=== PATIENT | male | born 1965 | race Caucasian/White ===

== ENCOUNTER 2016-12-27 07:36 | Day surgery (SDC) | payer OTHER, MEDICARE ==
[~2016-12-27] VITALS: Ht 180.3 cm; Wt 128.0 kg
--- NOTE | ~2016-12-27 | CON ---
PATIENT'S NAME: IGOR GOLDSTEIN [facility] AGE: 51 Y [address] ROOM: [id number] [place], [place] [id number] LOCATION: [facility] – [place] ADMIT DATE: 12/27/2016 Consultation DISCHARGE DATE: FAMILY PHYSICIAN: Max Osborne MD ATTENDING PHYSICIAN: Vinny Kee REFERRING PHYSICIAN: ORTEGA FORMAN MD CHIEF COMPLAINT: Obstructive sleep apnea, admitted postoperatively in for observation. HISTORY OF PRESENT ILLNESS: A 51-year-old gentleman with a past medical history of insulin-dependent diabetes mellitus, hypertension, and obstructive sleep apnea, who underwent a UPPP today in order to treat his obstructive sleep apnea surgically. On my encounter, he is coughing a lot secondary to procedure and receiving inhaled local anesthetics to relieve of that. He otherwise denied having any chest pain, any shortness of breath, any headache, any dizziness, any abdominal pain, any constipation, any diarrhea, burning on urination, or any leg swelling. REVIEW OF SYSTEMS: All other systems reviewed were negative except what is mentioned in the HPI. ALLERGIES: THE PATIENT HAS ALLERGY TO PENICILLIN. PAST MEDICAL HISTORY: 1. Insulin-dependent diabetes mellitus. 2. Hypertension. 3. Obstructive sleep apnea. 4. Osteoarthritis. 5. Morbid obesity. FAMILY HISTORY: Family history was significant for diabetes in both Mom and Dad. SOCIAL HISTORY: Never a smoker. No alcohol or drug abuse. PHYSICAL EXAMINATION: VITAL SIGNS: Blood pressure was 159/69, pulse was 72, oxygen saturation was 98%, respirations were 16, and afebrile. GENERAL: No acute distress. Coughing intermittently. HEAD: Atraumatic and normocephalic. EYES: Nonicteric. No pallor. MOUTH: Oropharynx, moist mucous membranes. PATIENT'S NAME: IGOR GOLDSTEIN [facility] AGE: 51 Y [address] ROOM: [id number] [place], [place] [address] LOCATION: [facility] [place] ADMIT DATE: 12/27/2016 Consultation DISCHARGE DATE: FAMILY PHYSICIAN: Max Osborne MD ATTENDING PHYSICIAN: Vinny Kee NECK: Very obese neck. CARDIOVASCULAR: S1 and S2. No murmurs, gallops, or rubs. LUNGS: Clear to auscultation bilaterally. ABDOMEN: Obese, soft, nontender, and nondistended. Bowel sounds are present. EXTREMITIES: No clubbing, cyanosis, or edema. PSYCHIATRIC: Normal affect, mood, and speech. NEUROLOGIC: Cranial nerves II through XII were intact. No motor or sensory deficit. MUSCULOSKELETAL: No muscle tenderness or swelling was noted. LABORATORY DATA: Blood glucose level today on Accu-Chek was 143. ASSESSMENT: 1. Insulin-dependent diabetes mellitus. 2. Hypertension. 3. Obstructive sleep apnea. 4. Osteoarthritis. 5. Morbid obesity. 6. Status post uvulopharyngopalatoplasty, postoperative day zero. PLAN: At this point, we will observe this patient in the hospital. Decrease the dose of insulin from 65 units of Levemir to 50 units, given his fasting status. Sliding-scale insulin moderate scale and Accu-Cheks every hour. Diet orders per ENT. Agree with re-starting all the home medications for hypertension. SCDs for DVT prophylaxis. MD BURTON LAGOS/aye /[id number] d: 12/27/162019 t: 12/28/16 0929, CONSULTATION REPORT
--- NOTE | ~2016-12-27 | OR ---
PATIENT'S NAME: BRYANT GOLDSTEIN [facility] AGE: 51 Y [address] ROOM: [place] [address] [place] [facility] [place] DATE: 12/27/2016 OR/Procedure Report DISCHARGE DATE: FAMILY PHYSICIAN: Max Osborne MD ATTENDING PHYSICIAN: Marcio Gomez SURGEON: Marcio Gomez MD MANAGER COMPLETIONS: DATE OF PROCEDURE: 12/27/2016 PREOPERATIVE DIAGNOSES: 1. Uvular/soft palate hypertrophy with gagging. 2. Known obstructive sleep apnea. POSTOPERATIVE DIAGNOSES: 1. Uvular/soft palate hypertrophy with gagging. 2. Known obstructive sleep apnea. ANESTHESIA: General. PROCEDURE: Uvulopalatopharyngoplasty. HISTORY: Bryant Goldstein is a 51-year-old gentleman with chronic history of obesity and obstructive sleep apnea. The patient has had increasing difficulty with hypertrophy of the uvula and gagging symptoms. The patient notes no other head or neck complaints. Exam confirmed the above. The operative indications, potential complications, and options including increased risk of airway obstruction postop were discussed with the patient, who wished to proceed with surgery. DESCRIPTION OF PROCEDURE: Bryant Goldstein was brought to the operating room, placed in the supine position, and underwent general anesthesia without incident. The Migdalia-Delta mouth gag was used to expose the oropharynx where small tonsils were noted. The uvula was hypertrophied. The base of the uvula was injected with 3 mL of 1% lidocaine with 1:100,000 epinephrine. After approximately 5 minutes, uvulectomy including soft palate was performed. The edges were closed with interrupted 4-0 chromic suture. Bleeding was minimal. The patient tolerated the procedure well, was extubated, and taken to the recovery room in stable condition. MARCIO GOMEZ MD DGO/modl PATIENT'S NAME: BRYANT GOLDSTEIN [facility] AGE: 51 Y [address] ROOM: [place] [address] [place] [facility] [place] DATE: 12/27/2016 OR/Procedure Report DISCHARGE DATE: FAMILY PHYSICIAN: Max Osborne MD ATTENDING PHYSICIAN: Marcio Gomez /[id number] d: 12/27/16 1851 t: 01/03/17 0751, OPERATIVE SUMMARY
[~2016-12-27 07:36] MED LIST: ALLEGRA180 MG PO; AMBIEN10 MG PO; ASPIRIN LO-DOSE81 MG PO; ATIVAN 0.5MG0.5 MG PO; ATIVAN 1 MG1 MG PO; CIPRO500 MG PO; COREG25 MG PO; CPAP INH; CYMBALTA60 MG PO; DESYREL50 MG PO; FISH OIL 1,2001 EACH PO; FLAGYL500 M1 PO; FLAGYL500 MG PO; GLUCOPHAGE1000 MG PO; IBUPROFEN800 MG PO; LANTUS (IN100 UNIT/M SUB-Q; LISINOPRIL-HCT1 EAC2 PO; LYRICA 50MG CAP50 MG PO; METAMUCIL FIBE1 EACH PO; METFORMIN HCL850 MG PO; MS CONTIN30 MG PO; NEURONTIN600 MG PO; NOVOLOG FL100 UNIT/1 SUB-Q; OMNICEF 300MG300 MG PO; PERIDEX15 ML PO; PRAVACHOL40 MG PO; PRAVACHOL80 MG PO; PRILOSEC40 MG PO; PRINIVIL10 MG PO; PROTONIX40 MG PO; REGLAN5 MG PO; REQUIP2 MG PO; REQUIP3 MG PO; TRILEPTAL300 MG PO; VIAGRA100 MG PO; VISTARIL50 MG PO; VITAMIN C250 MG PO; VITAMIN D-32000 UNI1 PO; WELLBUTRIN SR150 MG PO; WELLBUTRIN SR200 MG PO; ZOFRAN8 MG PO; ZOLOFT100 MG PO; ZYPREXA10 MG PO
[2016-12-27 09:28] LABS: INR - (THERAPEUTIC) 1.01 (0.92-1.07); PROTIME 10.6 SECONDS (9.8-11.4)
--- NOTE | 2016-12-27 19:55 | NUR ---
Significant Event: Patient is alert and oriented x3. Up with a stand by assist and cane. May use face tent PRN if patient wants. Back of the throat is red and slightly bruised, has stitches in the back of the throat. When the patient came up to the floor he had a headache and he was complaining of pain in his throat. Called , got a one time dose of Morphine x1, 2mg. Gave that dose at 1421. Patient tolerated well. Recieved IV tylenol q6hrs, after second dose patient stated that his pain was very little. Ate supper without difficulty, and drank without difficulty. Patient is a diabetic and does accu checks every 6hrs last was 188 and 240. IV saline locked to the left forearm. VSS on room air. Patient wears a CPAP at night. Does have some numbness to the top of his right foot from an old injury. Patient is to have ETCO2 on for 24hrs. Calm and cooperative with all cares. Follow up: Pain, blood pressure, blood sugar
--- NOTE | 2016-12-28 07:24 | NUR ---
SIGNIFICANT EVENT: Patient alert & oriented. Tachycardia at times - 84 to 105 at rest. Other VSS on RA - does wear CPap at HS. FiO2 monitoring until approx 1300 today - face tent at bedside if needed. SBA - does use a cane sometimes if his R) foot/leg is bothering him. PIV to L) FA is SL, intermittent IV Tylenol. Q6 accuchecks. Moderate SS insulin coverage. 4 Moderate voids with 780 PO fluids, IV 120. at bedside. Pleasant and cooperative with cares.
--- NOTE | 2016-12-28 11:45 | NUR ---
Introduced self/role to patient. Lives in [place] with his Lisette, she was present but not engaged in the conversation. Patient denied any discharged needs. Added my name to his marker board, will continue to follow.
--- NOTE | 2016-12-28 14:46 | NUR ---
Patient is alert and oriented, VSS, on room air. Uses CPAP at night. Up ad radha. Q6 accuchecks, morning dose of Novolog not given due to late breakfast. Does have numbness and tingling to top of R) foot due to previous back injury. L) forearm IV is saline locked. Will dismiss later today.
--- NOTE | 2016-12-28 18:30 | NUR ---
Dismissal teaching completed at 1720 D:Orders received for patient to be dismissed. I:Dismissal instructions were prepared and reviewed with the patient but the virtual nurse using the computer technology. The following information was reviewed with the patient:diet and activity recommendations for home, abnormal s/s to monitor for and to report to MD if they occur, home medications, and plans for follow up with Dr. Kee in 3 weeks. Atilio teaching given to and reviewed with the patient on the following topics: Uvulopalatopharyngoplasty, Preventing DVT's After Surgery. R:The patient verbalized understanding of above teaching and denied further questions at the time. The virtual tech took the paperwork in the room for the patient to have and sign. The patient's primary nurse was informed that the dismissal teaching had been completed. P:The patient was going to be dismissed as soon as he got packed up and was ready. Song DREW
== END 2016-12-28 18:15 | disposition disaster alternative care site (69) ==
LOC: GSDC 07:36 → GMSU 07:36 → GSDC 11:00 → GMSU 12:27 → GSDC 12-28 18:15
PROVIDERS: Otolaryngology
PROC: 0CS30ZZ Reposition Soft Palate, Open Approach (ICD-10-PCS; principal; 2016-12-27)
DX: G47.33 Obstructive sleep apnea (adult) (pediatric) (principal); K13.79 Other lesions of oral mucosa; I11.0 Hypertensive heart disease with heart failure; I50.9 Heart failure, unspecified; E11.65 Type 2 diabetes mellitus with hyperglycemia; F32.9 Major depressive disorder, single episode, unspecified; F41.9 Anxiety disorder, unspecified; K21.9 Gastro-esophageal reflux disease without esophagitis; E78.5 Hyperlipidemia, unspecified; E55.9 Vitamin D deficiency, unspecified; M19.90 Unspecified osteoarthritis, unspecified site; E66.01 Morbid (severe) obesity due to excess calories; Z68.39 Body mass index [BMI] 39.0-39.9, adult; Z88.0 Allergy status to penicillin; Z79.82 Long term (current) use of aspirin; Z79.84 Long term (current) use of oral hypoglycemic drugs; Z79.4 Long term (current) use of insulin; Z79.899 Other long term (current) drug therapy
CPT/HCPCS: J0131; J1100; J2250; J2270; J2405; J3010; J7030; J7050